=== PATIENT | male | born 1970 | race Caucasian/White ===

== ENCOUNTER → 2020-04-17 14:31 | Outpatient (CLI) | payer OTHER, SELFPAY ==
--- NOTE | 2020-04-17 | DI.US.S_ITS ---
PROCEDURE: US PERIPH VENOUS LOW EXTREM RT INDICATIONS: PAIN OF RIGHT LOWER EXTREMITY TECHNIQUE: Real-time imaging, as well as color and pulse Doppler interrogation, were performed of the lower extremity deep veins from the inguinal ligament to the popliteal fossa. COMPARISON: None. FINDINGS: The common femoral, femoral and popliteal veins are normally compressible, and free of intraluminal thrombus. Color and pulse Doppler demonstrate normal phasic intraluminal flow. There is normal augmentation response to distal compression maneuver. IMPRESSION: No DVT in the right lower extremity. Dictated by: Addy Kemp M.D. on 04/17/2020 at 15:34 Approved by: Addy Kemp M.D. on 04/17/2020 at 15:34
== END ==
PROVIDERS: PCP Internal Medicine; Referring Provider Internal Medicine; Visit Provider Internal Medicine
DX: M79.604 Pain in right leg (principal)
CPT/HCPCS: 87254; 93971

== ENCOUNTER → 2021-03-30 09:12 | Outpatient (CLI) | payer OTHER, SELFPAY ==
--- NOTE | 2021-03-30 09:15 | DI.RAD.S_ITS ---
PROCEDURE: XR KNEE LT 3V INDICATIONS: BILATERAL KNEE PAIN TECHNIQUE: 3 views of the knee were acquired. COMPARISON: None. FINDINGS: Bones: No fractures or dislocations. No suspicious bony lesions. Mild tricompartmental osteoarthritis. Soft tissues: No joint effusion. No suspicious soft tissue calcifications. IMPRESSION: Mild tricompartmental osteoarthritis. Dictated by: Cynthia Geiger MD, PhD on 03/30/2021 at 10:37 Approved by: Cynthia Geiger MD, PhD on 03/30/2021 at 10:38
--- NOTE | 2021-03-30 09:15 | DI.RAD.S_ITS ---
PROCEDURE: XR KNEE RT 3V INDICATIONS: BILATERAL KNEE PAIN TECHNIQUE: 3 views of the knee were acquired. COMPARISON: None. FINDINGS: Bones: No fractures or dislocations. No suspicious bony lesions. Mild tricompartmental osteoarthritis. Soft tissues: No joint effusion. No suspicious soft tissue calcifications. IMPRESSION: Mild tricompartmental osteoarthritis. Dictated by: Cynthia Geiger MD, PhD on 03/30/2021 at 10:36 Approved by: Cynthia Geiger MD, PhD on 03/30/2021 at 10:37
== END ==
PROVIDERS: PCP Physician Assistant; Referring Provider Physician Assistant; Visit Provider Physician Assistant
DX: M25.561 Pain in right knee (principal); M25.562 Pain in left knee; M17.0 Bilateral primary osteoarthritis of knee
CPT/HCPCS: 73562

== ENCOUNTER → 2021-04-06 15:42 | Outpatient (ROUT) | payer SELFPAY ==
[2021-04-06 15:44] LABS: Urine Drug Scr, Empl Non-NIDA See Separate Report
== END ==
PROVIDERS: PCP Physician Assistant
DX: Z02.1 Encounter for pre-employment examination (principal)
CPT/HCPCS: 81099

== ENCOUNTER → 2021-05-08 10:10 | Outpatient (CLI) | payer OTHER, SELFPAY ==
[2021-05-08] MEDS: COVID-19 VACC #3, MRNA(MOD) 50 MCG/0.25 ML VIAL IM (10:16)
== END ==
PROVIDERS: PCP Physician Assistant; Visit Provider Internal Medicine
DX: Z23 Encounter for immunization (principal)
CPT/HCPCS: 0013A; 91301

== ENCOUNTER → 2022-01-16 09:14 | Outpatient (CLI) | payer OTHER, SELFPAY ==
[2022-01-16 10:24] LABS: Hemoglobin A1C% w Est Avg Glu 7.2 % (4.0-6.0)
[2022-01-16 10:49] LABS: LDL Cholesterol Direct 60 mg/dL (<100)
== END ==
PROVIDERS: PCP Family Medicine; Referring Provider Family Medicine; Visit Provider Family Medicine
DX: E78.1 Pure hyperglyceridemia (principal)
CPT/HCPCS: 36415; 83036; 83721

== ENCOUNTER → 2023-04-29 15:09 | Outpatient (CLI) | payer OTHER, SELFPAY | PROVIDERS: PCP Family Medicine; Referring Provider Family Medicine; Visit Provider Family Medicine | DX: Z23 Encounter for immunization (principal) | CPT/HCPCS: 90471; 90686 ==

== ENCOUNTER 2023-11-15 13:50 | Day surgery (SDC) | payer OTHER, SELFPAY ==
--- NOTE | 2023-11-15 | PATH_ITS ---
[facility] Accession Number: [id number] No. of containers..01 Tissue . 01 Material submitted: . colon - SIGMOID POLYP . 01 Diagnosis: SIGMOID COLON POLYP: Tubular adenoma. MRV 11/18/2023 1633 Local . 01 Electronically signed: . Jonathan Le MD, PhD, Pathologist NPI- [id number] . 01 Gross description: . Received in formalin with two identifiers and sigmoid polyp, is a single arrieta soft tissue fragment measuring 0.4 cm in greatest dimension. Submitted entirely in A1. ([id number]) /MRV 11/17/2023 1853 Local . 01 Pathologist provided ICD-10: D12.5 . 01 CPT . 424254 Specimen Comment: A courtesy copy of this report has been sent to [phone] Performed at: [address] [facility] [id number] MD Chris Sanchez MD Phone: [phone]
[2023-11-15 14:22] VITALS: BP 144/86; PULSE 88; RESP 16; TEMP 36.1; O2SAT 97
[2023-11-15] MEDS: LACTATED RINGERS 1,000 ML 42 ML IV (14:38)
--- NOTE | 2023-11-15 15:03 | P.HP_ITS ---
History of Present Illness History of Present Illness Date Patient Seen: 11/15/23 Time Patient Seen: 15:03 Chief complaint: Colonoscopy Narrative: 53-year-old man here for 1st time screening colonoscopy. No family history of intestinal malignancy. No abdominal concerns today. [facility] Medical History Basal cell carcinoma Hypercholesteremia Hypertension Arthritis Diabetes mellitus Social History Smoking Status: Never smoker Meds Home Medications and Allergies Home Medications Medication Instructions Recorded Confirmed Type sodium,potassium,mag sulfates 17.5 See Rx Instructions PO .COMPLEX 09/07/23 Rx gram-3.13 gram-1.6 gram oral soln #354 mL (Suprep Bowel Prep Kit) metformin 500 mg tablet,extended 500 mg PO DAILY 11/15/23 11/15/23 History release 24 hr metoprolol succinate 25 mg 25 mg PO DAILY 11/15/23 11/15/23 History tablet,extended release 24 hr semaglutide 0.25 mg or 0.5 mg (2 0.5 mg SUBCUT WEEKLY 11/15/23 11/15/23 History mg/3 mL) subcutaneous pen injector (Ozempic) Allergies Allergy/AdvReac Type Severity Reaction Status Date / Time No Known Drug Allergies Allergy Verified 11/15/23 14:18 Exam Vital Signs (past 8 hours): - 11/15/23 14:22 Temperature 96.9 F L Pulse Rate 88 Respiratory Rate 16 Blood Pressure 144/86 H Pulse Oximetry 97 Oxygen Delivery Method Room Air Oxygen Delivery Method Room Air Narrative Exam Narrative: General adult man alert oriented no acute distress Chest nonlabored respiration Extremities warm well perfused Assessment & Plan Assessment & Plan narrative: The patient requires colorectal screening and colonoscopy is recommended. Technical details were discussed. Risks, benefits, alternatives explained. Risks including but not limited to myocardial infarction, aspiration, bleeding, pain, missed lesion, incomplete examination, need for further radiographic studies, intestinal injury, and need for major abdominal surgery were discussed. All questions were answered to their satisfaction, and they are in agreement with this plan.
--- NOTE | 2023-11-15 15:08 | P.OP.COLON_ITS ---
Operative Date/Time/Diagnoses Date of procedure: 11/15/23 Time of procedure: 15:08 Pre-op diagnosis: Colorectal screening Procedure & Clinicians Study performed: Screening colonoscopy and polypectomy Same procedure as scheduled: Yes Indications: Colorectal screening Surgeon: Caleb Jamison Procedure Notes Procedure in detail: The history and physical was performed/updated and the patient is ASA class is 2. The procedure was discussed in detail with the patient. Potential risks complications including infection, bleeding, missed diagnosis, perforation, need for surgery, and were explained. Their questions were answered and informed consent was obtained. Patient was brought to the procedure room and placed standard monitoring equipment. The patient's vital signs were monitored continuously throughout the entire procedure. Prior to starting time-out was performed. The patient was placed in the left lateral recumbent position. Procedural sedation was administered by anesthesia. Examination began with a thorough inspection of the perianal area there was no evidence of fissures, fistulae, external hemorrhoids or cutaneous malignancy. The colonoscopy scope was then placed into the anal canal and was advanced to the cecum, which was identified by the ileocecal valve, the appendiceal orifice and the confluence of the taenia. The scope was then slowly withdrawn examining colon thoroughly in all directions, irrigating it of any residual stool. The scope was retroflexed within the rectum The patient tolerated the procedure well. They will be discharged once criteria are met. The prep was of good/excellent quality. The withdrawl time was 7 minutes. FINDINGS * Sigmoid colon-5 mm polyp removed with biopsy forceps * Mild diverticulosis of descending colon. Specimen(s): other (Sigmoid polyp) Impression: Colonic polyp x1 Post-procedure Recommendations: High fiber diet Plan for aftercare: Follow-up dependent on pathology findings likely 5 years Disposition: same day surgery
[2023-11-15 15:39] VITALS: BP 160/91; PULSE 105; RESP 17; TEMP 36.6; O2SAT 97
[2023-11-15 15:46] VITALS: BP 161/107; PULSE 104; RESP 12; TEMP 36.6; O2SAT 99
[2023-11-15 15:50] VITALS: BP 139/85; PULSE 95; RESP 19; TEMP 36.3; O2SAT 98
== END 2023-11-15 16:05 | disposition home or self-care (01) ==
PROVIDERS: PCP Family Medicine; Referring Provider Surgery; Visit Provider Surgery
PROC: 0DJD8ZZ Inspection of Lower Intestinal Tract, Via Natural or Artificial Opening Endoscopic (ICD-10-PCS; CPT 45378; principal; 2023-11-15 15:00)
DX: Z12.11 Encounter for screening for malignant neoplasm of colon (principal); K57.30 Diverticulosis of large intestine without perforation or abscess without bleeding; D12.5 Benign neoplasm of sigmoid colon
CPT/HCPCS: 45380; J2704

== ENCOUNTER → 2024-04-13 15:51 | Outpatient (CLI) | payer OTHER, SELFPAY | PROVIDERS: PCP Family Medicine; Referring Provider Internal Medicine; Visit Provider Internal Medicine | DX: Z23 Encounter for immunization (principal) | CPT/HCPCS: 90471; 90656 ==

== ENCOUNTER 2024-06-19 08:34 | Emergency (ER) | payer OTHER, SELFPAY ==
[2024-06-19] VITALS (10 sets, daily range): BP systolic 143–170; BP diastolic 78–93; PULSE 87–100; RESP 15–26; TEMP 36.7; O2SAT 96–99; BMI 35.5
--- NOTE | 2024-06-19 09:03 | EKG_ITS ---
[address] [address] Test Date: 2024-06-19 Pat Name: Silvestre Durand Department: Room: Gender: Male Job Development Specialist: MELONY : 1970 Requested By: Order Number: [id number] Reading MD: Juan Rendon Measurements Intervals [place] Rate: 92 P: 39 W[place]: 148 QRS: 47 QRSD: 92 T: 42 QT: 380 QTc: 469 Interpretive Statements Normal sinus rhythm Electronically Signed On 06-21-2024 9:45:29 PST by Juan Rendon
[2024-06-19 09:35] LABS: Add Manual Diff / Slide Review NO; Basophils Absolute Auto 0 /uL (0-100); Basophils Percent Auto 0.4 % (0-2); Eosinophils Absolute Auto 100 /uL (0-450); Eosinophils Percent Auto 0.4 % (2-4); Hematocrit 44.3 % (41-53); Lymphocytes Absolute Auto 1500 /uL (1100-4500); Lymphocytes Percent Auto 11.8 % (25-40); Mean Corpuscular HGB Conc 33.9 % (30-36); Mean Corpuscular Hemoglobin 33.6 PG (26-34); Mean Corpuscular Volume 99.1 fL (80-100); Monocytes Absolute Auto 900 /uL (0-900); Monocytes Percent Auto 7.2 % (3-14); Neutrophils Absolute Auto 10300 /uL (1500-7000); Neutrophils Percent Auto 80.2 % (50-75); Platelet Count 204 X10^3/uL (150-400); Red Blood Cell Count 4.47 X10^6/uL (4.5-5.9); Red Cell Distribution Width 13.1 % (11.6-14.8); White Blood Cell Count 12.9 X10^3/uL (4.5-11.0)
[2024-06-19 09:48] LABS: Alanine Aminotransferase 39 IU/L (<50); Albumin 4.5 g/dL (3.5-5.0); Albumin Globulin Ratio 1.6 (1.0-2.8); Alkaline Phosphatase 39 U/L (38-126); Aspartate Aminotransferase 45 IU/L (17-59); BUN Creatinine Ratio 22.9 (6-22); Bilirubin Total 0.8 mg/dL (0.2-1.3); Blood Urea Nitrogen 19 mg/dL (9-20); Calcium 9.3 mg/dL (8.4-10.2); Carbon Dioxide 23 mmol/L (22-32); Chloride 105 mmol/L (98-107); Estimated Glomerular Filt Rate > 60 mL/min (>60); Globulin 2.9 g/dL (1.7-4.1); Glucose 150 mg/dL (70-100); Lipase 85 U/L (23-300); Potassium 4.3 mmol/L (3.4-5.1); Sodium 137 mmol/L (137-145); Total Protein 7.4 g/dL (6.3-8.2)
[2024-06-19 09:51] LABS: HEMOLYSIS 67 (0-50)
--- NOTE | 2024-06-19 10:01 | ED_ITS ---
HPI - Abdominal Pain General Chief Complaint: Abdominal Pain Stated Complaint: Severe lower left stomach pain, N/V/D Time Seen by Provider: 06/19/24 09:54 Source: patient Mode of arrival: Ambulatory History of Present Illness HPI narrative: Patient 53-year-old male history of diabetes on metformin hypertension presenting today with sudden onset of left-sided abdominal pain vomiting and diarrhea. He reports that he had dinner last night he had a normal day yesterday however this morning woke up with numerous episodes of diarrhea and vomiting. He finally got it to stop. He is having intense left-sided abdominal pain now. No prior history of abdominal surgeries. Denies any sort of chest pain. Was unable to keep anything in was coming out both ends. Related Data Home Medications Medication Instructions Recorded Confirmed metformin 500 mg tablet,extended 500 mg PO DAILY 11/15/23 11/15/23 release 24 hr metoprolol succinate 25 mg 25 mg PO DAILY 11/15/23 11/15/23 tablet,extended release 24 hr semaglutide 0.25 mg or 0.5 mg (2 0.5 mg SUBCUT WEEKLY 11/15/23 11/15/23 mg/3 mL) subcutaneous pen injector (Ozempic) Previous Rx's Medication Instructions Recorded hydrocodone 5 mg-acetaminophen 325 1 tab PO Q6H PRN pain #10 tabs 06/19/24 mg tablet ondansetron 4 mg disintegrating 4 mg PO Q8H PRN nausea and 06/19/24 tablet vomiting #10 tabs Allergies Allergy/AdvReac Type Severity Reaction Status Date / Time No Known Drug Allergies Allergy Verified 11/15/23 14:18 Patient History Medical History Basal cell carcinoma Hypercholesteremia Hypertension Arthritis Diabetes mellitus Social History Smoking Status: Never smoker Smoking Status: Never smoker alcohol intake frequency: a few times a week Exam Initial Vital Signs Initial Vital Signs: Vital Signs Pulse Rate 93 H 06/19/24 09:01 Respiratory Rate 15 06/19/24 09:01 GENERAL: Alert 53-year-old male and in no acute distress. HEENT: Head atraumatic,EOMI, pupils reactive, face symmetric, moist mucous membranes CARDIOVASCULAR: Regular rate and rhythm without murmurs, rubs or gallops. RESPIRATORY: Breath sounds equal bilaterally, no wheezes rales or rhonchi. ABDOMEN: Soft, mild tenderness left lower quadrant no guarding or rebound EXTREMITIES: Normal range of motion, no clubbing or edema. Neurovascularly intact NEUROLOGICAL: Alert and oriented x4.Normal gait and speech. Cranial nerves II through XII grossly intact. SKIN: Warm, dry, no laceration, no petechiae, no rashes or lesions. Course Orders Ordered: ED Orders 06/19/24 09:02 EKG-12 Lead Stat 06/19/24 09:20 Complete Blood Count AUTO DIFF Stat Comprehensive Metabolic Panel Stat Lipase Stat 06/19/24 10:01 CT abdomen pelvis w con Stat 06/19/24 11:24 Urine Microscopic Stat Discontinued Medications Ketorolac Tromethamine (Ketorolac 30 Mg/Ml Vial) 15 mg IV NOW ONE Stop: 06/19/24 10:02 Last Admin: 06/19/24 10:09 Dose: 15 mg Documented By: Ondansetron HCl (Ondansetron 4 Mg/2 Ml Inj) 4 mg IV NOW PRN PRN Reason: Nausea And Vomiting Ondansetron HCl (Ondansetron 4 Mg Odt) 4 mg PO NOW PRN PRN Reason: Nausea And Vomiting Vital Signs Vital signs: Vital Signs - 8 hr 06/19/24 09:01 06/19/24 09:02 06/19/24 09:02 Temperature Pulse Rate 93 H 91 H Respiratory Rate 15 17 Blood Pressure 165/88 H Pulse Oximetry 97 Oxygen Delivery Method 06/19/24 09:08 06/19/24 09:30 06/19/24 09:30 Temperature 98.0 F Pulse Rate 90 87 Respiratory Rate 18 17 Blood Pressure 165/88 H 148/78 H Pulse Oximetry 96 97 Oxygen Delivery Method Room Air Room Air 06/19/24 10:00 06/19/24 10:00 06/19/24 10:33 Temperature Pulse Rate 94 H 100 H Respiratory Rate 17 26 H Blood Pressure 156/81 H Pulse Oximetry 96 98 Oxygen Delivery Method 06/19/24 10:34 06/19/24 10:34 06/19/24 11:00 Temperature Pulse Rate 97 H 92 H Respiratory Rate 23 16 Blood Pressure 163/80 H Pulse Oximetry 98 97 Oxygen Delivery Method 06/19/24 11:00 06/19/24 11:26 06/19/24 11:26 Temperature Pulse Rate 97 H Respiratory Rate 22 Blood Pressure 143/79 H 170/93 H Pulse Oximetry 99 Oxygen Delivery Method Room Air 06/19/24 11:30 06/19/24 11:30 Temperature Pulse Rate 92 H Respiratory Rate 17 Blood Pressure 150/83 H Pulse Oximetry 97 Oxygen Delivery Method MDM - Abdominal Pain Lab Data 06/19/24 09:20 06/19/24 09:20 Labs: Lab Results 06/19/24 06/19/24 Range/Units 09:20 11:24 WBC 12.9 H (4.5-11.0) X10^3/uL RBC 4.47 L (4.5-5.9) X10^6/uL Hgb 15.0 (13.5-17.5) g/dL Hct 44.3 (41-53) % MCV 99.1 (80-100) fL MCH 33.6 (26-34) PG MCHC 33.9 (30-36) % RDW 13.1 (11.6-14.8) % Plt Count 204 (150-400) X10^3/uL Neut % (Auto) 80.2 H (50-75) % Lymph % (Auto) 11.8 L (25-40) % [place] % (Auto) 7.2 (3-14) % Eos % (Auto) 0.4 L (2-4) % Baso % (Auto) 0.4 (0-2) % Neut # (Auto) 58850 H (2626-2988) /uL Lymph # (Auto) 1500 (3701-6217) /uL [place] # (Auto) 900 (0-900) /uL Eos # (Auto) 100 (0-450) /uL Baso # (Auto) 0 (0-100) /uL Sodium 137 (137-145) mmol/L Potassium 4.3 (3.4-5.1) mmol/L Chloride 105 (98-107) mmol/L Carbon Dioxide 23 (22-32) mmol/L BUN 19 (9-20) mg/dL Creatinine 0.83 (0.66-1.25) mg/dL Estimated GFR > 60 (>60) mL/min BUN/Creatinine Ratio 22.9 H (6-22) Glucose 150 H (70-100) mg/dL Calcium 9.3 (8.4-10.2) mg/dL Total Bilirubin 0.8 (0.2-1.3) mg/dL AST 45 (17-59) IU/L ALT 39 (<50) IU/L Alkaline Phosphatase 39 (38-126) U/L Total Protein 7.4 (6.3-8.2) g/dL Albumin 4.5 (3.5-5.0) g/dL Globulin 2.9 (1.7-4.1) g/dL Albumin/Globulin Ratio 1.6 (1.0-2.8) Lipase 85 (23-300) U/L Urine RBC 5-10/hpf H (0-5/HPF) Urine WBC None seen (0-5/HPF) Ur Squamous Epith Cells None seen (0-5/HPF) Urine Bacteria None seen (None) Ur Culture Indicated? Cult not indicated Vol Urine Centrifuged 10ml (spun) Point of care testing: Urine Dip Bedside Urine Glucose Negative Bedside Urine Bilirubin - Negative Bedside Urine Ketone - Negative Urine Specific [place] 1.010 Bedside Urine Occult Blood +++ Bedside Urine pH 5.5 Bedside Urine Protein - Negative Bedside Urine Urobilinogen - Negative Bedside Urine Nitrite - Negative Bedside Urine Leukocytes - Negative Esterase Imaging Data CT scan - abdomen/pelvis: Radiologist's Impression: PROCEDURE: CT ABDOMEN PELVIS W CON INDICATIONS: vomiting left sided pain TECHNIQUE: After the administration of intravenous contrast, axial sections acquired from the lung bases to the pubic symphysis. Coronal and sagittal reformats were performed. For radiation dose reduction, the following was used: automated exposure control, adjustment of mA and/or kV according to patient size. COMPARISON: None. FINDINGS: Image quality: Diagnostic. Lower Chest: No significant findings. ABDOMEN: Liver: No solid mass. Moderate to severe hepatic steatosis is seen. Gallbladder: No radiopaque gallstones or wall thickening. Biliary ducts: No biliary dilation. Pancreas: No ductal dilation. Spleen: Size is within normal limits. Adrenal Glands: No adrenal nodules. Kidneys and Ureters: There is moderate left-sided hydronephrosis and perinephric fat stranding. 4 mm nonobstructing stone is seen in lower pole left kidney. Moderate left-sided hydroureter is seen with a 3 mm stone seen in distal left ureter series 2, image 130. No right-sided hydronephrosis or hydroureter. No solid mass. No complex renal cystic lesion which requires follow up. Stomach and Bowel: There is no bowel obstruction. No abnormal bowel wall thickening or mesenteric fat stranding. Appendix is visualized and is within normal limits. Colonic diverticulosis without CT evidence of acute diverticulitis. Peritoneum: No abnormal intraperitoneal fluid. No free air. Ventral Wall: No significant ventral hernia. Abdominal Nodes: No retroperitoneal or mesenteric adenopathy by size criteria. Vessels: Aorta and inferior vena cava are normal in size. PELVIS: Pelvic Organs: Enlarged prostate gland with mass effect on floor of urinary bladder is seen.. Bladder: No bladder wall thickening, accounting for underdistention. Pelvic Nodes: No enlarged lymph nodes. Miscellaneous: No inguinal hernias are seen. Bones: No aggressive osseous abnormality. IMPRESSION: 1. 3 mm left distal ureteral stone with [id number] left-sided hydronephrosis and hydroureter. No right-sided renal stones or hydronephrosis. Normal appearing urinary bladder. Enlarged prostate gland with mild mass effect on floor of urinary bladder. 2. No bowel obstruction or abnormal bowel wall thickening. Normal appendix. Colonic diverticulosis without CT evidence of acute diverticulitis. No free fluid or free air. 3. Moderate to severe hepatic steatosis. Dictated by: Win Becerra M.D. on 06/19/2024 at 10:58 MDM Narrative Medical decision making narrative: MDM CC: Left-sided abdominal pain vomiting diarrhea Complicating co-morbidities: Hypertension diabetes Differential considered: Gastroenteritis diverticulitis nephrolithiasis Exam documented above, pertinent findings include: Lab Test results independently reviewed as above. Pertinent findings: WBC 12.9 hemoglobin 15 hematocrit 44.3 platelets 204 Sodium 137 potassium 4.3 chloride 105 carbon dioxide 23 BUN 19 creatinine 0.8 Bilirubin 0.8 AST 45 ALT 39 alk-phos 39 lipase 85 Urinalysis positive for blood negative leukocytes and nitrates Imaging studies independently reviewed: Left distal nephrolithiasis 3 mm Treatments: Toradol Re-evaluations: Pain completely resolved Discussion: 53-year-old male presenting today with sudden onset nausea vomiting diarrhea left-sided pain. CT confirms a 3 mm distal stone. Mild leukocytosis but no evidence of UTI. He has no CLEMENT. Patient is improved after Toradol. At this time supportive care only, no need for antibiotics at this time Discharge Plan Departure Patient Disposition: Home Clinical Impression: Left nephrolithiasis Instructions: DI for Kidney Stones Activity Restrictions/Additional Instructions: *You have been diagnosed with kidney stone *What to do: At this time stay hydrated you should pass the stone hopefully within 24-48 hours *Continue to take medications as directed Motrin 600 mg every 6 hours if needed for [id number] pain Zofran 4 mg every 8 hours for nausea or vomiting [place] 1 tablet every 6 hours for severe pain *Follow up with your primary care provider in 2-3 days or call [phone] *Return to ER if you should have increasing pain persistent vomiting fever [or] any new, worsening or concerning symptoms Prescriptions: New hydrocodone-acetaminophen 5-325 mg tablet 1 tab PO Q6H PRN (Reason: pain) Qty: 10 0RF ondansetron 4 mg tablet,disintegrating 4 mg PO Q8H PRN (Reason: nausea and vomiting) Qty: 10 0RF No Action metoprolol succinate 25 mg tablet extended release 24 hr 25 mg PO DAILY metformin 500 mg tablet extended release 24 hr 500 mg PO DAILY Ozempic 0.25 mg or 0.5 mg (2 mg/3 mL) pen injector 0.5 mg SUBCUT WEEKLY Referrals: Luis Garcia MD [Primary Care Provider] - Stand Alone Forms: Patient Portal/API/Survey
[2024-06-19] MEDS: KETOROLAC 30 MG/ML VIAL 15 MG IV (10:09)
[2024-06-19 12:02] LABS: Bacteria Urine None Seen; Culture Indicated Urine Cult Not Indicated; RBC Urine 5-10/HPF (0-5/HPF); Squamous Epithelial Cell Urine None Seen (0-5/HPF); Urine Volume 10mL (spun); WBC Urine None Seen (0-5/HPF)
== END 2024-06-19 11:54 | disposition home or self-care (01) ==
PROVIDERS: Emergency Provider Emergency Medicine; PCP Family Medicine
DX: N13.2 Hydronephrosis with renal and ureteral calculous obstruction (principal); I10 Essential (primary) hypertension; E11.9 Type 2 diabetes mellitus without complications; Z79.84 Long term (current) use of oral hypoglycemic drugs; Z79.85 Long-term (current) use of injectable non-insulin antidiabetic drugs
CPT/HCPCS: 36415; 74177; 80053; 81003; 81015; 83690; 85025; 93005; 96374; 99284; J1885; Q9967

== ENCOUNTER → 2024-10-26 12:41 | Outpatient (CLI) | payer OTHER, SELFPAY ==
--- NOTE | 2024-10-26 | DI.RAD.S_ITS ---
PROCEDURE: XR CHEST 2V INDICATIONS: ROUTINE TECHNIQUE: 2 views of the chest were acquired. COMPARISON: None. FINDINGS: Surgical changes and devices: None. Lungs and pleura: Lungs are clear. No pleural effusions or pneumothorax. Mediastinum: Mediastinal contours are normal. Heart size is normal. Bones and chest wall: No suspicious bony abnormalities. Soft tissues appear unremarkable. IMPRESSION: No acute cardiopulmonary abnormality is seen. Dictated by: Keven Infante M.D. on 10/26/2024 at 14:50 Approved by: Keven Infante M.D. on 10/26/2024 at 14:50
== END ==
LOC: DI 12:42
PROVIDERS: PCP Family Medicine; Referring Provider Family Medicine; Visit Provider Family Medicine
DX: R05.1 Acute cough (principal)
CPT/HCPCS: 71046